=== PATIENT | male | born 1970 | race Two or more races ===

== ENCOUNTER 2018-03-15 09:26 | Emergency (ER) | payer MEDICAID ==
[~2018-03-15] VITALS: Ht 165.1 cm; Wt 86.2 kg
[2018-03-15] MEDS ORDERED: SODIUM CHLORIDE 0.9% 1,000 ML IV ONE (09:53)
[2018-03-15 10:27] LABS: Basophils # (auto) 0.2 uL; Eosinophils # (auto) 0.2 uL; Eosinophils % (auto) 0.9 % (0.0-7.0); Monocytes # (auto) 1.2 uL
[2018-03-15 10:28] LABS: Basophils % (auto) 0.9 % (0.0-2.0); Hematocrit 22.6 % (41.0-53.0); Lymphocytes # (auto) 0.6 uL; Lymphocytes % (auto) 3.2 % (10.0-50.0); Mean Corpuscular Hemoglobin 29.4 pg (28.0-32.0); Mean Corpuscular Volume 94.7 fL (80.0-100.0); Monocytes % (auto) 6.1 % (0.0-12.0); Neutrophils # (auto) 16.9 uL; Neutrophils % (auto) 88.9 % (37.0-80.0); Nucleated Red Blood Cells % 2.1 %; Platelet Count (auto) 405 10^3/uL (140-450); Red Blood Cells 2.39 10^6/uL (4.5-5.90); Red Cell Distribution Width 17.7 % (11.8-14.3); White Blood Cell 19.1 10^3/uL (4.4-10.8)
[2018-03-15] MEDS ORDERED: DEXTROSE (50%) 50ML SYRG IV ONE ×2 (10:30)
[2018-03-15] MEDS ORDERED: PIPERACILLIN-TAZOB 3.375GM 100 ML IV ONE (10:45)
[2018-03-15 10:46] LABS: Albumin 1.9 g/dL (3.4-5.0); Bilirubin, Total 0.4 mg/dL (0.2-1.0); Calcium 6.2 mg/dL (8.5-10.1); Potassium 4.8 mmol/L (3.5-5.1); Total Protein 7.1 g/dL (6.4-8.2)
[2018-03-15 11:03] LABS: BUN/Creatinine Ratio 5.7
[2018-03-15 11:57] VITALS: BP 132/70
== END 2018-03-15 13:57 | disposition left against medical advice (07) ==
LOC: ER 09:26
DX: A41.9 Sepsis, unspecified organism (principal); Z53.29 Procedure and treatment not carried out because of patient's decision for other reasons
CPT/HCPCS: 36415; 71045; 80053; 82962; 83605; 84484; 85025; 86850; 86900; 86901; 87040; 96365; 96366; 96375; 99285; J2543; J7030; J7042